=== PATIENT | female | born 1935 | race Caucasian/White ===

== ENCOUNTER 2021-06-16 11:16 | Emergency (ER) | payer MEDICARE ==
[~2021-06-16] VITALS: Ht 157.5 cm; Wt 84.3 kg
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
--- NOTE | 2021-06-16 11:49 | NUR ---
BREAK RN: REPORT GIVEN TO MIKIE RODRIGUEZ
--- NOTE | 2021-06-16 11:49 | NUR ---
PT TO CT AT THIS TIME.
[2021-06-16] MEDS ORDERED: ACETAMINOPHEN 325 MG TABLET PO ONE (12:00)
[2021-06-16] MEDS ORDERED: ACETAMINOPHEN 500 MG TABLET ONE (12:18)
[2021-06-16] MEDS ORDERED: PLEASE ENTER ALLERGIES MC SCH (12:30)
--- NOTE | 2021-06-16 12:37 | NUR ---
FAMILY AT BEDSIDE. ALL RESULTS BACK. PT UP FOR RECHECK
--- NOTE | 2021-06-16 13:20 | NUR ---
PT UP TO BEDSIDE COMMODE
[2021-06-16 13:51] VITALS: BP 149/56
== END 2021-06-16 13:53 | disposition home or self-care (01) ==
LOC: ED 13:41
DX: S00.93XA Contusion of unspecified part of head, initial encounter (principal); M54.2 Cervicalgia; I45.19 Other right bundle-branch block; W01.0XXA Fall on same level from slipping, tripping and stumbling without subsequent striking against object, initial encounter; Y93.89 Activity, other specified; Y92.009 Unspecified place in unspecified non-institutional (private) residence as the place of occurrence of the external cause; Y99.8 Other external cause status
CPT/HCPCS: 70450; 72125; 93005; 99285